=== PATIENT | male | born 1955 | race Caucasian/White ===

== ENCOUNTER 2023-01-27 06:08 | Day surgery (SDC) | payer MEDICARE ==
[2023-01-24 11:27] VITALS: BMI 26.6
[2023-01-27] MEDS ORDERED: Lidocaine 1% PF 5 ML VIAL ONE (06:54)
[2023-01-27] MEDS ORDERED: PROPOFOL 40 ML ONE (06:54)
[2023-01-27] MEDS ORDERED: PROPOFOL 20 ML ONE (07:50)
== END 2023-01-27 08:40 | disposition home or self-care (01) ==
LOC: CSHSDC 06:08
PROVIDERS: ATTEND Internal Medicine Gastroenterology
PROC: 0DJD8ZZ Inspection of Lower Intestinal Tract, Via Natural or Artificial Opening Endoscopic (ICD-10-PCS; principal; 2023-01-27)
DX: Z12.11 Encounter for screening for malignant neoplasm of colon (principal); K63.5 Polyp of colon; I10 Essential (primary) hypertension; E78.5 Hyperlipidemia, unspecified; K57.30 Diverticulosis of large intestine without perforation or abscess without bleeding; K64.9 Unspecified hemorrhoids; G47.33 Obstructive sleep apnea (adult) (pediatric); Z98.890 Other specified postprocedural states; Z90.89 Acquired absence of other organs; Z79.899 Other long term (current) drug therapy
CPT/HCPCS: J2704